=== PATIENT | female | born 1955 | race Caucasian/White ===

== ENCOUNTER → 2016-11-12 | Outpatient (CLI) | payer OTHER ==
[~2016-11-12] MED LIST: ATORVASTATIN PO; LISI-725 PO; METFORMIN PO; METO50TA16 PO; TRIGLYCERIDE PO
--- NOTE | 2016-11-12 15:04 | DIAGNOSTIC IMAGING REPORT ---
TWO VIEW CHEST CLINICAL HISTORY: Preoperative examination. FINDINGS: PA and lateral chest radiographs are obtained. No prior studies are available for comparison at the time of dictation. The cardiomediastinal silhouette is unremarkable. There is atherosclerotic calcification of the thoracic aorta. The lungs and pleural spaces are clear. There is no pneumothorax. The skeletal structures are osteopenic. The bony thorax appears intact. IMPRESSION: No active disease in the chest. Electronically signed by: Ricky Barajas M.D. 11/12/2016 3:03 PM Dictated Date/Time: 11/12/2016 3:03 PM
[2016-11-12 15:05] LABS: BASO % 0.6 %; BASO ABS # 0.03 K/uL (0-0.2); COMPLETE YES; EOS % 1.8 %; IG% 0.6 %; LYMPH % 31.3 %; MEAN CELL VOLUME 91.9 fL (80-100); MEAN CORPUSCULAR HEMOGLOBIN 32.6 pg (25-34); MEAN CORPUSCULAR HGB CONC 35.5 g/dl (32-36); MONO % 10.5 %; NEUT % 55.2 %; PLATELET COUNT 231 K/uL (130-400); RED BLOOD COUNT 4.57 M/uL (4.2-5.4); WHITE BLOOD COUNT 5.44 K/uL (4.8-10.8)
[2016-11-12 15:33] LABS: BLOOD UREA NITROGEN 15 mg/dl (7-18); CARBON DIOXIDE 29 mmol/L (21-32); CHLORIDE 103 mmol/L (98-107); CREATININE 0.76 mg/dl (0.60-1.20); GLUCOSE 157 mg/dl (70-99); POTASSIUM 4.2 mmol/L (3.5-5.1); SODIUM 138 mmol/L (136-145)
== END | disposition home or self-care (01) ==
LOC: C.CPL 14:33
PROVIDERS: ATTEND Orthopaedic Surgery
DX: Z01.818 Encounter for other preprocedural examination (principal); M75.121 Complete rotator cuff tear or rupture of right shoulder, not specified as traumatic

== ENCOUNTER → 2016-11-19 | Day surgery (SDC) | payer OTHER ==
[2016-11-17 11:30] VITALS: Ht 156.2 cm; Wt 68.2 kg
[~2016-11-19] VITALS: Ht 156.2 cm; Wt 68.2 kg
[~2016-11-19] MED LIST changes: +BUPIVACAINE/EPINEPHRINE 0.25% 1:200,000 30 ML VIAL ONE; +CEFAZOLIN 2000 MG/60 ML D5W IV SCH; +EpINEphrine INJ 1MG/ML AMP 1 MG/ML AMP ONE; +LACTATED RINGER'S 1000ML 1,000 ML IV SCH; +PATIENT'S ALLERGY INFO NEEDS ENTERED SCH
[2016-11-19 09:22] VITALS: PULSE 87; TEMP 36.9; O2SAT 100
[2016-11-19 09:55] VITALS: BP 229/116
--- NOTE | 2016-11-19 09:57 | Anesthesiology Progress Note ---
Anesthesia Progress Note Date of Service Nov 19, 2016. Progress Notes This is a 61 y/o w female presenting for a right Rotator cuff repair under general anesthesia.The patient has HTN,which is uncontrolled.She hasn't taken her antihypertensive medication today.She states she hasn't followed up with her physicianin a year. Her BP's measured here multiple times have been 213-229/ 115-116 with means of 150 torr. I have explained the anesthetic implications of the HTN to the patient and the consequences ,including positioning,to her. I have cancelled the case. She understands and is appreciative. I have discussed this w/Dr Horvath. He understands and is in agreement with cancelling her and rescheduling after she sees her PCP.He will reschedule her at the hospital.
== END | disposition home or self-care (01) ==
LOC: X.SURG 09:07
PROVIDERS: ATTEND Orthopaedic Surgery
DX: M75.101 Unspecified rotator cuff tear or rupture of right shoulder, not specified as traumatic (principal); R03.0 Elevated blood-pressure reading, without diagnosis of hypertension; Z53.8 Procedure and treatment not carried out for other reasons

== ENCOUNTER → 2017-07-05 | Outpatient (CLI) | payer OTHER ==
[~2017-07-05] MED LIST changes: -BUPIVACAINE/EPINEPHRINE 0.25% 1:200,000 30 ML VIAL ONE; -CEFAZOLIN 2000 MG/60 ML D5W IV SCH; -EpINEphrine INJ 1MG/ML AMP 1 MG/ML AMP ONE; -LACTATED RINGER'S 1000ML 1,000 ML IV SCH; -PATIENT'S ALLERGY INFO NEEDS ENTERED SCH
[2017-07-05 17:44] LABS: BASO % 0.4 %; BASO ABS # 0.03 K/uL (0-0.2); COMPLETE YES; HEMATOCRIT 38.8 % (37-47); IG% 0.1 %; LYMPH % 23.6 %; LYMPH ABS # 1.62 K/uL (1.2-3.4); MEAN CELL VOLUME 91.3 fL (80-100); MEAN CORPUSCULAR HEMOGLOBIN 31.8 pg (25-34); MEAN CORPUSCULAR HGB CONC 34.8 g/dl (32-36); MEAN PLATELET VOLUME 9.9 fL (7.4-10.4); MONO % 8.7 %; NEUT % 66.2 %; PLATELET COUNT 319 K/uL (130-400); RED BLOOD COUNT 4.25 M/uL (4.2-5.4); WHITE BLOOD COUNT 6.86 K/uL (4.8-10.8)
[2017-07-05 18:12] LABS: BLOOD UREA NITROGEN 18 mg/dl (7-18); BUN/CREATININE RATIO 22.4 (10-20); CALCIUM 9.7 mg/dl (8.5-10.1); CARBON DIOXIDE 27 mmol/L (21-32); CHLORIDE 104 mmol/L (98-107); CREATININE 0.81 mg/dl (0.60-1.20); GLUCOSE 84 mg/dl (70-99); SODIUM 140 mmol/L (136-145)
== END | disposition home or self-care (01) ==
LOC: C.CPL 16:32
PROVIDERS: ATTEND Orthopaedic Surgery
DX: M75.121 Complete rotator cuff tear or rupture of right shoulder, not specified as traumatic (principal)

== ENCOUNTER → 2017-07-22 | Day surgery (SDC) | payer OTHER ==
[2017-07-06 15:56] VITALS: Ht 156.2 cm; Wt 66.4 kg
[~2017-07-22] VITALS: Ht 156.2 cm; Wt 66.4 kg
[~2017-07-22] MED LIST changes: +ATROPINE SULFATE 0.1 MG/ML 5ML SYR IV PRN; +BUPIVACAINE/EPINEPHRINE 0.25% 1:200,000 30 ML VIAL ONE; +CEFAZOLIN 2000MG IV PUSH 10 ML IV SCH; +CHOL200010; +DEXAMETHASONE SOD INJ 4 MG/ML VIAL ONE; +EpHEDrine SULFATE 50MG/5ML SYR ONE; +EpHEDrine SULFATE INJ 50 MG/ML AMP IV PRN; +EpINEphrine INJ 1MG/ML AMP 1 MG/ML AMP ONE; +FENO48TA9 PO; +FENTANYL CITRATE INJ 50 MCG/1 ML 2 ML VIAL IV PRN; +FENTANYL CITRATE INJ 50 MCG/1 ML 2 ML VIAL ONE; +KETO10TA PO; +LACTATED RINGER'S 1000ML 1,000 ML IV SCH; +MIDAZOLAM HCL 1 MG/ML 2ML VIAL ONE; +ONDANSETRON INJ 2 MG/ML 2 ML VIAL IV PRN; +ONDANSETRON INJ 2 MG/ML 2 ML VIAL ONE; +OXYC-57 PO; +OXYCODONE/ACETAMINOPHEN 5-325 TAB PO PRN; +PROPOFOL IV EMULSION 10 MG/ML 20 ML VIAL IV ONE; +ROPIVACAINE 0.5% 5 MG/ML 30 ML VIAL ONE; +SODIUM CHLORIDE 0.9% 1000ML 1,000 ML IV SCH
--- NOTE | 2017-07-22 10:08 | History & Physical Bridge Note ---
H&P Re-Evaluation Bridge Note: I have examined the patient, reviewed the History & Physical and in the interval since the performance of the History & Physical I have noted the following changes of clinical significance: No changes noted
--- NOTE | 2017-07-22 12:20 | [facility] Post Operative Brief Note ---
Immediate Operative Summary Operative Date Jul 22, 2017. Pre-Operative Diagnosis Right shoulder medium rotator cuff tear Post-Operative Diagnosis Same as preop Procedure(s) Performed Right Shoulder Arthroscopy, Medium Rotator Cuff Repair Surgeon Dr. Horvath Receiving Manager Surgeon(s) Cory Gutierrez PA-C Estimated Blood Loss 5ML Findings as above Specimens None Complication(s) None Disposition Recovery Room / PACU
--- NOTE | 2017-07-22 12:54 | Discharge Instructions-SurgCtr ---
Discharge Instructions Date of Service Jul 22, 2017. Visit Reason for Visit: Right Shoulder Full Thickness Rotator Cuff Tear Discharge Discharge Diagnosis / Problem: SAME ABOVE Discharge Goals Goal(s): Decrease discomfort, Improve function Medications Stopped Medications Name(s): Metformin stopped 2 days ago. Restart Stopped Medication(s): MAY RESTART 07/22/2017 Activity Recommendations Activity Limitations: as noted below Lifting Limitations: until after follow-up appointment Exercise/Sports Limitations: until after follow-up appointment Shower/Bathe: tomorrow Anesthesia . Post Anesthesia Instructions: If you have had General Anesthesia or IV Sedation: * Do not drive today. * Resume driving when surgeon permits. * Do not make important decisions or sign legal documents today. * Call surgeon for: 1. Temperature elevations greater than 101 degrees F. 2. Uncontrollable pain. 3. Excessive bleeding. 4. Persistent nausea and vomiting. 5. Medication intolerance (nausea, vomiting or rash). * For nausea and vomiting use only clear liquids such as: tea, soda, bouillon until nausea subsides, then gradually increase diet as tolerated. * If you have any concerns or questions, call your surgeon's office. If physician is unavailable and it is an emergency, call 911 or go to the nearest emergency room. . Instructions / Follow-Up Instructions / Follow-Up MEDICATIONS: * Resume previous medications unless instructed otherwise by your surgeon. * Always take pain medication on a full stomach or with food to avoid upset stomach. * Do not drink alcohol or drive while taking narcotics. * Ibuprofen or Tylenol may be taken if narcotic not needed. SPECIAL CARE INSTRUCTIONS: __ None _X_ Keep extremity elevated and iced x 48 hours; apply ice 20-30 minutes 8-10 times/day. May remove at night. __ Sling __24 hrs/day __ Remove at night _X_ Shoulder Immobilizer (MAY REMOVE AFTER 48 HOURS ONLY TO SHOWER AND FOR THERAPY) _X_ 24 hrs/day __ Remove at night _X_ Dressing __ Maintain until seen in office, may shower with plastic over site _X_ Remove dressings in 24-48 hours and then may shower _X_ Cover incisions with band-aids after showering __ Do not remove steri-strips Call physician if chills or temperature rises above 102 degrees or pain unrelieved by prescribed pain medications at . . Diet Recommendations Home Diet: no limitations Fluid Restriction: None Procedures Procedures Performed: Right Shoulder Arthroscopy, Medium Rotator Cuff Repair Pending Studies Studies pending at discharge: no Work Instructions Return To Work: after follow-up Lifting Limitations: NO LIFTING WITH RIGHT ARM Medical Emergencies . Who to Call and When: Medical Emergencies: If at any time you feel your situation is an emergency, please call 911 immediately. . Non-Emergent Contact Non-Emergency issues call your: Primary Care Provider Call Non-Emergent contact if: you have a fever, temperature is above 101.5 . . "Provider Documentation" section prepared by Cory Gutierrez. .
--- NOTE | 2017-07-22 13:15 | OPERATIVE REPORT ---
DATE OF OPERATION: 07/22/2017 PREOPERATIVE DIAGNOSES: Medium sized right rotator cuff tear and biceps tendinopathy. POSTOPERATIVE DIAGNOSES: Medium sized crescent shaped rotator cuff tear with biceps tendinopathy and acromioclavicular joint arthritis. PROCEDURES: Right shoulder diagnostic arthroscopy with limited debridement, distal clavicle resection, acromioplasty, medium sized rotator cuff repair and arthroscopic biceps tenodesis. SURGEON: Dr. Toan Horvath. MANAGER PERSONNEL SELECTION: Jamie Gutierrez PA-C, whose assistance was necessary for positioning the arm and helping with instrumentation. ANESTHESIA: General with a right interscalene nerve block. COMPLICATIONS: None. CONDITION: Stable to PACU. INDICATIONS: Jimena is a pleasant 62-year-old female who has been dealing with a several year history of right shoulder pain. MRI and clinical examination were diagnostic for medium sized rotator cuff tear. After failing conservative treatment, she elected to undergo a medium rotator cuff repair. DESCRIPTION OF PROCEDURE: On 07/22/2017, she arrived at [facility] for the above procedure. She was seen in the preoperative holding area and the operative extremity was identified and signed. She was given a preoperative antibiotic and a right interscalene nerve block. She was taken back to the operating room, laid on the table in the supine position and put under general anesthesia. She was then put into the beachchair position. The right shoulder was prepped and draped in sterile fashion. Time-out was done and the patient's operative extremity was properly identified. On preoperative physical examination, she was a little bit tight, may be from lack range of motion and I was able to do minor manipulation. The scope was then placed into the glenohumeral joint. There was no cartilage damage on the humeral head or the glenoid. There was significant fraying of the anterior and superior labrum. The biceps tendon was significantly frayed. The subscap was intact. There was a tear of the entire supraspinatus. The infraspinatus and teres minor were intact. An anterior portal was made. A shaver was used to do a limited debridement of the intraarticular structures and the biceps tendon was arthroscopically tenotomized for later tenodesis. I also released the rotator interval and middle glenohumeral ligament, but it looked a little bit tight and I was concerned for postoperative adhesive capsulitis. The scope was then put into the subacromial space. A lateral portal was made. A shaver was used to do a complete subacromial and subdeltoid bursectomy. An ablator was used to tease the coracoacromial ligament off the undersurface of the acromion and a 5-0 brayden was used to complete an acromioplasty of a Bigliani type 3 acromion. A shaver was used to remove any excess debris and attention was turned to the rotator cuff. It was a crescent shaped medium sized rotator cuff tear. An additional anterolateral portal was made and Monserrat cannulas were placed in each of the lateral portals. The greater tuberosity was prepared with a ring curette and a microfracture. The rotator cuff was then fixed with an Arthrex SpeedBridge configuration using BioComposite SwiveLock suture anchors and FiberTapes. This gave a nice repair. Multiple pictures were taken. The long head of the biceps tendon was tagged with a FiberLink suture and incorporated into the anterior lateral anchor to complete an arthroscopic biceps tenodesis. Attention was then turned to the distal clavicle. Through an anterior portal, a shaver and ablator were used to skeletonize the distal clavicle. A 5-0 brayden was then used to resect the distal 5 mm from the clavicle. Complete resection was checked under direct visualization. The scope was placed back into the glenohumeral joint and the articular margin of the rotator cuff had been restored. Pictures were taken. Arthroscopic instruments were removed from the shoulder. Portal sites were closed with 3-0 nylon. She was then placed in a soft dressing and an abduction arm sling. She was then extubated, transferred to a [facility] and taken to the postanesthesia care unit in stable condition. She tolerated the procedure well. I attest to the content of the Intraoperative Record and any orders documented therein. Any exception s are noted below.
--- NOTE | 2017-07-22 13:24 | Anesthesia Progress Nt - [facility] ---
Anesthesia Post Op Note Date & Time Jul 22, 2017 at 13:24 Vital Signs Pain Intensity: 2 Vital Signs Past 12 Hours Date Time Temp Pulse Resp B/P (MAP) Pulse Ox O2 Delivery O2 Flow Rate FiO2 07/22/17 12:30 36.2 80 12 152/93 100 Mask 6 07/22/17 10:59 16 07/22/17 10:55 128/81 07/22/17 10:54 67 07/22/17 10:54 66 17 100 07/22/17 10:53 66 07/22/17 10:53 67 33 100 07/22/17 10:50 131/80 07/22/17 10:48 63 0 100 07/22/17 10:48 63 07/22/17 10:45 141/89 07/22/17 10:43 70 23 100 07/22/17 10:43 70 07/22/17 10:42 63 07/22/17 10:42 63 37 100 07/22/17 10:40 162/100 07/22/17 10:37 77 07/22/17 10:37 77 8 100 07/22/17 10:36 145/92 07/22/17 10:32 66 07/22/17 10:32 66 11 100 07/22/17 10:31 70 07/22/17 10:31 71 20 99 07/22/17 10:30 177/104 07/22/17 10:30 173/110 07/22/17 10:26 60 100 07/22/17 10:26 60 07/22/17 10:21 61 100 07/22/17 10:21 61 07/22/17 10:20 63 07/22/17 10:20 63 100 07/22/17 09:45 36.4 64 16 149/90 (109) 99 Room Air Notes Mental Status: alert / awake / arousable, participated in evaluation Pt Amnestic to Procedure: Yes Nausea / Vomiting: adequately controlled Pain: adequately controlled Airway Patency, RR, SpO2: stable & adequate BP & HR: stable & adequate Hydration State: stable & adequate Anesthetic Complications: no major complications apparent
[2017-07-22 13:45] VITALS: TEMP 36.8
[2017-07-22 14:25] VITALS: BP 147/85; PULSE 67; O2SAT 99
== END | disposition home or self-care (01) ==
LOC: X.SURG 09:08
PROVIDERS: ATTEND Orthopaedic Surgery
DX: M75.101 Unspecified rotator cuff tear or rupture of right shoulder, not specified as traumatic (principal); M75.21 Bicipital tendinitis, right shoulder; I10 Essential (primary) hypertension; E11.9 Type 2 diabetes mellitus without complications